=== PATIENT | female | born 1960 | race Hispanic/Latino ===

== ENCOUNTER 2019-09-14 12:48 | Emergency (ER) | payer OTHER ==
[~2019-09-14] VITALS: Ht 157.5 cm; Wt 73.5 kg
[2019-09-14] MEDS ORDERED: AZITHROMYCIN 500MG/NS 250 ML 250 ML IV ONE (13:15)
[2019-09-14] MEDS ORDERED: CEFTRIAXONE SOD 1 GM/NS 50 ML 50 ML IV ONE (13:15)
[2019-09-14] MEDS ORDERED: PANTOPRAZOLE 40 MG 10ML VIAL IV STA (13:15)
[2019-09-14] MEDS ORDERED: SODIUM CHLORIDE 0.9% 1000ML 1,000 ML IV STA (13:15)
[2019-09-14 14:02] LABS: BASOPHILS % 0.2 % (0.0-1.0); HEMATOCRIT 38.5 % (34.2-44.1); HEMOGLOBIN 12.5 g/dL (12.0-16.0); LYMPHOCYTES % 6.3 % (18.0-39.1); MEAN CORPUSCULAR HEMOGLOBIN 31.9 pg (28-32); MEAN CORPUSCULAR HGB CONC 32.5 g/dL (31-35); MEAN CORPUSCULAR VOLUME 98.2 fL (81-99); MONOCYTES # (AUTO) 0.7 (0.2-0.8); MONOCYTES % 4.1 % (4.4-11.3); NEUTROPHILS # (AUTO) 14.5 (2.1-6.9); NEUTROPHILS % 87.9 % (38.7-80.0); PLATELET COUNT 199 x10e3/uL (140-360); RED BLOOD COUNT 3.92 x10e6/uL (3.6-5.1); RED CELL DISTRIBUTION WIDTH 14.4 % (11.7-14.4)
[2019-09-14] MEDS ORDERED: MORPHINE SULFATE INJ 4 MG/ML INJ 1ML IV STA (14:03)
[2019-09-14] MEDS ORDERED: ONDANSETRON HCL INJ 2MG/ML 2ML 2 MG/ML VIAL IV STA (14:03)
[2019-09-14 14:15] LABS: INR 1.08; PROTHROMBIN TIME 14.7 seconds (11.9-14.5)
[2019-09-14 14:16] LABS: PARTIAL THROMBOPLASTIN TIME 34.9 seconds (23.8-35.5)
[2019-09-14] MEDS ORDERED: ONDANSETRON HCL INJ 2MG/ML 2ML 2 MG/ML VIAL ONE (14:17)
[2019-09-14] MEDS ORDERED: MORPHINE SULFATE INJ 4 MG/ML INJ 1ML ONE (14:17)
[2019-09-14 14:24] LABS: ALANINE AMINOTRANSFERASE 43 IU/L (0-55); ALBUMIN 2.2 g/dL (3.5-5.0); ALBUMIN/GLOBULIN RATIO 0.4 (0.8-2.0); ALKALINE PHOSPHATASE 786 IU/L (40-150); ANION GAP 17.6 mmol/L (8-16); BLOOD UREA NITROGEN 13 mg/dL (7-26); BUN/CREATININE RATIO 13 (6-25); CALCIUM 8.6 mg/dL (8.4-10.2); CARBON DIOXIDE 22 mmol/L (22-29); CHLORIDE 104 mmol/L (98-107); CREATINE KINASE 55 IU/L (29-168); CREATININE, SERUM 1.04 mg/dL (0.57-1.11); EST GLOMERULAR FILTRATION RATE 54 ML/MIN (60-); GLUCOSE 185 mg/dL (74-118); POTASSIUM 4.6 mmol/L (3.5-5.1); SODIUM 139 mmol/L (136-145)
--- NOTE | 2019-09-14 14:30 | Emergency Department Note ---
History of Present Illnes History of Present Illness Chief Complaint: COVID PUI History of Present Illness This is a 58 year old female DIAGNOSED WITH COVID AT [facility] 09/10. TODAY WOKE UP WITH SHORTNESS OF BREATH AND MASS TO LEFT SIDE OF NECK. 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 Any updates have been documented here. Past Medical History Recent Fever: No Clinical Suspicion of Infectio: No New/Unexplained Change in Ment: No Past Medical History: Hypertension Other Surgery: RIGHT NEPHROSTOMY COLOSTOMY INTESTINAL SURGERY Social History Smoking Cessation: Never Smoker Counseling Performed: No Alcohol Use: None Any Illegal Drug Use: No TB Exposure/Symptoms: No Physically hurt or threatened: No Family History Family history of heart diseas: No Other Last Tetanus: UPD Any Pre-Existing Lines (PICC,: No Is patient up to date on immun: Yes Last Flu: UNK Last Pneumovax: UNK Review of Systems Review of Systems Constitutional: Reports as per HPI EENTM: Reports as per HPI Cardiovascular: Reports no symptoms Respiratory: Reports as per HPI, Reports dyspnea Gastrointestinal: Reports no symptoms Genitourinary: Reports no symptoms Musculoskeletal: Reports no symptoms Integumentary: Reports no symptoms Neurological: Reports no symptoms Psychological: Reports no symptoms Endocrine: Reports no symptoms Hematological/Lymphatic: Reports no symptoms Physical Exam Related Data Allergies: Uncoded Allergies: PENICILLINE (Adverse Reaction, Unknown, SHORT OF BREATH, 09/14/19) Triage Vital Signs Vital Signs Date Time Temp Pulse Resp B/P (MAP) Pulse Ox O2 Delivery O2 Flow Rate FiO2 09/14/19 12:57 98.9 122 20 111/58 09/14/19 13:24 97 Vital signs reviewed: Yes Physical Exam CONSTITUTIONAL Constitutional: Present well-developed, Present well-nourished, Present ill appearing HENT HENT: Present normocephalic, Present atraumatic, Present oropharynx clear/moist, Present nose normal HENT L/R: Present left ext ear normal, Present right ext ear normal EYES Eyes: Reports PERRL, Reports conjunctivae normal NECK Neck: Present other (LARGE 6CM FIRM MASS LEFT ANT NECK, TENDER) PULMONARY Pulmonary: Present other (DECR BS's THROUGHOUT) CARDIOVASCULAR Cardiovascular: Present regular rhythm, Present heart sounds normal, Present capillary refill normal, Present normal rate GASTROINTESTINAL Abdominal: Present soft, Present nontender, Present bowel sounds normal GENITOURINARY Genitourinary: Present exam deferred SKIN Skin: Present warm, Present dry MUSCULOSKELETAL Musculoskeletal: Present ROM normal NEUROLOGICAL Neurological: Present alert, Present oriented x 3, Present no gross motor or sensory deficits PSYCHOLOGICAL Psychological: Present mood/affect normal, Present judgement normal Results Laboratory Result Diagram: 09/14/19 1311 09/14/19 1311 Laboratory Laboratory Tests Test 09/14/19 13:11 White Blood Count 16.45 x10e3/uL (4.8-10.8) Red Blood Count 3.92 x10e6/uL (3.6-5.1) Hemoglobin 12.5 g/dL (12.0-16.0) Hematocrit 38.5 % (34.2-44.1) Mean Corpuscular Volume 98.2 fL (81-99) Mean Corpuscular Hemoglobin 31.9 pg (28-32) Mean Corpuscular Hemoglobin Concent 32.5 g/dL (31-35) Red Cell Distribution Width 14.4 % (11.7-14.4) Platelet Count 199 x10e3/uL (140-360) Neutrophils (%) (Auto) 87.9 % (38.7-80.0) Lymphocytes (%) (Auto) 6.3 % (18.0-39.1) Monocytes (%) (Auto) 4.1 % (4.4-11.3) Eosinophils (%) (Auto) 0.0 % (0.0-6.0) Basophils (%) (Auto) 0.2 % (0.0-1.0) Neutrophils # (Auto) 14.5 (2.1-6.9) Lymphocytes # (Auto) 1.0 (1.0-3.2) Monocytes # (Auto) 0.7 (0.2-0.8) Eosinophils # (Auto) 0.0 (0.0-0.4) Basophils # (Auto) 0.0 (0.0-0.1) Absolute Immature Granulocyte (auto 0.25 x10e3/uL (0-0.1) Prothrombin Time 14.7 seconds (11.9-14.5) Prothromb Time International Ratio 1.08 Activated Partial Thromboplast Time 34.9 seconds (23.8-35.5) Urine Color Straw (YELLOW) Urine Clarity Sl cloudy (CLEAR) Urine pH 5.5 (5 - 7) Urine Specific [place] 1.015 (1.010-1.025) Urine Protein 2+ (NEGATIVE) Urine Glucose (UA) Negative (NEGATIVE) Urine Ketones Trace (NEGATIVE) Urine Blood Small (NEGATIVE) Urine Nitrite Positive (NEGATIVE) Urine Bilirubin Moderate (NEGATIVE) Urine Urobilinogen 0.2 mg/dL (0.2 - 1) Urine Leukocyte Esterase Large (NEGATIVE) Urine RBC 11-20 /HPF (0-5) Urine WBC 21-50 /HPF (0-5) Urine Epithelial Cells Few /LPF (NONE) Urine Bacteria Many /HPF (NONE) Sodium Level 139 mmol/L (136-145) Potassium Level 4.6 mmol/L (3.5-5.1) Chloride Level 104 mmol/L (98-107) Carbon Dioxide Level 22 mmol/L (22-29) Anion Gap 17.6 mmol/L (8-16) Blood Urea Nitrogen 13 mg/dL (7-26) Creatinine 1.04 mg/dL (0.57-1.11) Estimat Glomerular Filtration Rate 54 ML/MIN (60-) BUN/Creatinine Ratio 13 (6-25) Glucose Level 185 mg/dL (74-118) Lactic Acid Level 4.7 mmol/L (0.5-2.0) Calcium Level 8.6 mg/dL (8.4-10.2) Total Bilirubin 1.8 mg/dL (0.2-1.2) Aspartate Amino Transf (AST/SGOT) 115 IU/L (5-34) Alanine Aminotransferase (ALT/SGPT) 43 IU/L (0-55) Alkaline Phosphatase 786 IU/L (40-150) Creatine Kinase 55 IU/L (29-168) Creatine Kinase MB 1.40 ng/mL (0-5.0) Troponin I < 0.001 ng/mL (0-0.300) B-Type Natriuretic Peptide 47.8 pg/mL (0-100) Total Protein 7.6 g/dL (6.5-8.1) Albumin 2.2 g/dL (3.5-5.0) Globulin 5.4 g/dL (2.3-3.5) Albumin/Globulin Ratio 0.4 (0.8-2.0) Thyroid Stimulating Hormone (TSH) 0.853 uIU/mL (0.350-4.940) Laboratory Tests Test 09/14/19 13:11 White Blood Count 16.45 x10e3/uL (4.8-10.8) Red Blood Count 3.92 x10e6/uL (3.6-5.1) Hemoglobin 12.5 g/dL (12.0-16.0) Hematocrit 38.5 % (34.2-44.1) Mean Corpuscular Volume 98.2 fL (81-99) Mean Corpuscular Hemoglobin 31.9 pg (28-32) Mean Corpuscular Hemoglobin Concent 32.5 g/dL (31-35) Red Cell Distribution Width 14.4 % (11.7-14.4) Platelet Count 199 x10e3/uL (140-360) Neutrophils (%) (Auto) 87.9 % (38.7-80.0) Lymphocytes (%) (Auto) 6.3 % (18.0-39.1) Monocytes (%) (Auto) 4.1 % (4.4-11.3) Eosinophils (%) (Auto) 0.0 % (0.0-6.0) Basophils (%) (Auto) 0.2 % (0.0-1.0) Neutrophils # (Auto) 14.5 (2.1-6.9) Lymphocytes # (Auto) 1.0 (1.0-3.2) Monocytes # (Auto) 0.7 (0.2-0.8) Eosinophils # (Auto) 0.0 (0.0-0.4) Basophils # (Auto) 0.0 (0.0-0.1) Absolute Immature Granulocyte (auto 0.25 x10e3/uL (0-0.1) Prothrombin Time 14.7 seconds (11.9-14.5) Prothromb Time International Ratio 1.08 Activated Partial Thromboplast Time 34.9 seconds (23.8-35.5) Sodium Level 139 mmol/L (136-145) Potassium Level 4.6 mmol/L (3.5-5.1) Chloride Level 104 mmol/L (98-107) Carbon Dioxide Level 22 mmol/L (22-29) Anion Gap 17.6 mmol/L (8-16) Blood Urea Nitrogen 13 mg/dL (7-26) Creatinine 1.04 mg/dL (0.57-1.11) Estimat Glomerular Filtration Rate 54 ML/MIN (60-) BUN/Creatinine Ratio 13 (6-25) Glucose Level 185 mg/dL (74-118) Calcium Level 8.6 mg/dL (8.4-10.2) Total Bilirubin 1.8 mg/dL (0.2-1.2) Aspartate Amino Transf (AST/SGOT) 115 IU/L (5-34) Alanine Aminotransferase (ALT/SGPT) 43 IU/L (0-55) Alkaline Phosphatase 786 IU/L (40-150) Creatine Kinase 55 IU/L (29-168) Total Protein 7.6 g/dL (6.5-8.1) Albumin 2.2 g/dL (3.5-5.0) Globulin 5.4 g/dL (2.3-3.5) Albumin/Globulin Ratio 0.4 (0.8-2.0) Lab results reviewed: Yes Imaging Imaging results reviewed: Yes Procedures 12 Lead ECG Interpretation ECG Interpretation : ECG: ECG 1 Informatics Specialist: Interpreted by ED physician Date: Sep 14, 2019 Time: 13:46 Rhythm: sinus tachycardia Rate: tachycardia (121) QRS axis: normal ST segments normal: Yes T waves normal: Yes Clinical Impression: abnormal ECG Assessment & Plan Medical Decision Making MDM check cbc, chem, covid, cxr, ct chest and ct neck (mass), tsh, blood cx's, lactic acid, ua/cx - r/o pneumonia, covid19, uti, evaluate mass of neck, sepsis, electrolyte abnl, renal insuff Reassessment Reassessment Recent COVID19 positive, concern for sepsis with viral pneumonia as source SIRS criteria of WBC>12, HR>90, RR>20 Lactic acid 4.7 (lab says the specimen was hemolyzed) meets criteria for septic shock but i feel this is viral etiology so therefore will deviate from standard protocol. Blood cx's were drawn initially and IV abx's were given. NO ICU/IMCU BEDS AVAILABLE HERE - ADMINISTRATION WANTS PT TRANSFERRED. I SPOKE WITH DR ALEGRIA AND THOMAS AT [facility] - ACCEPTED FOR TRANSFER Assessment & Plan Final Impression: (1) Pneumonia due to COVID-19 virus (2) UTI (urinary tract infection) (3) Parotitis (4) Sepsis Depart Disposition: TRANS TO OTHER [facility] FAC[facility] Last Vital Signs Date Time Temp Pulse Resp B/P (MAP) Pulse Ox O2 Delivery O2 Flow Rate FiO2 09/14/19 13:24 118 28 121/109 97 09/14/19 12:57 98.9 Medications in the ED Pantoprazole Sodium 40 mg ONCE STAT IV Last administered on 09/14/19at 14:15; Admin Dose 40 MG; Start 09/14/19 at 13:15; Stop 09/14/19 at 13:30; Status DC Sodium Chloride 1,000 ml @ 0 mls/hr Q0M STAT IV Last administered on 09/14/19at 14:15; Admin Dose 1,000 MLS/HR; Start 09/14/19 at 13:15; Stop 09/14/19 at 13:22; Status DC Ceftriaxone Sodium 50 ml @ 100 mls/hr ONCE ONCE IV Last administered on 09/14/19at 14:15; Admin Dose 100 MLS/HR; Start 09/14/19 at 13:15; Stop 09/14/19 at 13:44; Status DC Azithromycin 250 ml @ 200 mls/hr NOW ONCE IV ; Start 09/14/19 at 13:15; Stop 09/14/19 at 14:29 Morphine Sulfate 4 mg NOW STAT IV Last administered on 09/14/19at 14:15; Admin Dose 4 MG; Start 09/14/19 at 14:03; Stop 09/14/19 at 14:08; Status DC Ondansetron HCl 4 mg NOW STAT IV Last administered on 09/14/19at 14:15; Admin Dose 4 MG; Start 09/14/19 at 14:03; Stop 09/14/19 at 14:08; Status DC Morphine Sulfate 4 mg STK-MED ONCE .ROUTE ; Start 09/14/19 at 14:17; Stop 09/14/19 at 14:11; Status DC Ondansetron HCl 4 mg STK-MED ONCE .ROUTE ; Start 09/14/19 at 14:17; Stop 09/14/19 at 14:11; Status DC MONA SOUZA MD Sep 14, 2019 14:30
[2019-09-14 14:31] LABS: B-TYPE NATRIURETIC PEPTIDE2 47.8 pg/mL (0-100)
[2019-09-14 14:43] LABS: THYROID STIMULATING HORMONE 0.853 uIU/mL (0.350-4.940)
[2019-09-14] MEDS ORDERED: SODIUM CHLORIDE 0.9% 50ML 50 ML ONE (14:43)
[2019-09-14] MEDS ORDERED: IOPAMIDOL 370 MG/ML 200 ML INFUS..BTL INJ ONE (14:44)
[2019-09-14 14:48] LABS: BILIRUBIN,URINE MODERATE (NEGATIVE); CLARITY,URINE SL CLOUDY (CLEAR); COLOR,URINE STRAW (YELLOW); KETONES,URINE TRACE (NEGATIVE); LEUKOCYTE ESTERASE ,URINE LARGE (NEGATIVE); NITRITE,URINE POSITIVE (NEGATIVE); PROTEIN,URINE DIPSTICK 2+ (NEGATIVE); URINE UROBILINOGEN 0.2 mg/dL (0.2 - 1)
[2019-09-14 15:00] LABS: BACTERIA,URINE MANY /HPF; EPITHELIAL CELLS,URINE FEW /LPF; WBC,URINE (MAN) 21-50 /HPF (0-5)
--- NOTE | 2019-09-14 16:11 | Diagnostic Imaging Report ---
EXAM: CT Chest WITH contrast- Pulmonary Embolism Protocol INDICATION: Shortness of breath COMPARISON: None TECHNIQUE: Chest was scanned utilizing a multidetector helical scanner from the lung apex through the level of the diaphragm after administration of IV contrast. Thin section reconstructions were obtained with special concentration on the pulmonary arteries. Coronal and sagittal reformations were obtained. Pulmonary embolism protocol was performed. IV CONTRAST: 100 cc of Isovue 370 RADIATION DOSE: Total DLP: 908 mGy*cm Dose modulation, iterative reconstruction, and/or weight based adjustment of the mA/kV was utilized to reduce the radiation dose to as low as reasonably achievable. COMPLICATIONS: None FINDINGS: LINES/ TUBES: None. PULMONARY ARTERIES: No filling defect is identified within the pulmonary arteries to the segmental level. The subsegmental pulmonary arteries are not well opacified. Main pulmonary artery measures 2.4 cm in diameter. No right heart strain. LUNGS AND AIRWAYS: The central airways are patent. Mild centrilobular emphysema. Multifocal bilateral lower lung predominant consolidative and groundglass opacities. Dependent lower lobe subsegmental atelectasis. PLEURA: Moderate right pleural effusion, likely with loculations. No pneumothorax. HEART AND MEDIASTINUM: Partially visualized thyroid gland appears unremarkable. No supraclavicular, axillary, mediastinal lymphadenopathy. Right hilar lymphadenopathy measures up to 1.7 cm. UPPER ABDOMEN: No acute findings in the upper abdomen. BONES: No acute osseous injury. No suspicious lytic or blastic lesions. Old left seventh lateral rib fracture. SOFT TISSUES: Unremarkable. IMPRESSION: No pulmonary embolism. Multifocal bilateral lower lung predominant ground glass and consolidative opacities most compatible with multifocal atypical pneumonia the given clinical history of COVID19. Right hilar lymphadenopathy is likely reactive. Moderate right pleural effusion, likely with loculated components. Associated right lower lobe subsegmental atelectasis. Signed by: Man Bee MD on 09/14/2019 4:07 PM
[2019-09-14] MEDS ORDERED: SODIUM CHLORIDE 0.9% 1000ML 1,000 ML ONE ×2 (16:37→17:24)
--- NOTE | 2019-09-14 17:16 | NUR ---
initial call to Transfer Center [id number]
[2019-09-14] MEDS: SODIUM CHLORIDE 0.9% 1000ML 1,000 ML IV SCH ×2 (17:19→18:37)
--- NOTE | 2019-09-14 17:19 | Diagnostic Imaging Report ---
History: Shortness of breath, left anterior neck mass Comparison studies: None Technique: Axial, coronal and sagittal images from the skull base to the thoracic inlet. Coronal and sagittal images reconstructed from the axial data. Dose modulation, iterative reconstruction, and/or weight based adjustment of the mA/kV was utilized to reduce the radiation dose to as low as reasonably achievable. Intravenous contrast: 100 cc of Omnipaque 300. Findings: Airway: Patent. Right parotid gland: Normal in size and density. No masses or calcifications. The left parotid gland: Diffuse enlarged and associated with ill-defined inflammatory changes throughout the superficial lobe that extend to the underlying platysma, to the surrounding subcutaneous fat and to the left submandibular space (series 802, images 9 through 47). No fluid collections to indicate the presence of an abscess. Lymph nodes: 9 mm mm enhancing, nonnecrotic, noncalcified left suprahyoid reactive lymph node (series 802, image 21) Otherwise, no radiographically significant adenopathy Vessels: Nonstenosing calcified plaques at the left carotid bulb. Otherwise, no abnormalities. The carotid and vertebral arteries are patent. Orbits: No abnormalities. Paranasal sinuses: Clear. Temporal bones: No abnormalities. Skull base and facial bones: Intact. Cervical spine: * Mildly degenerated disks at C4-5 and C5-6. * Foraminal stenosis, mild left at C2-3 and C3-4, moderate left at C4-5 and C5-6 due to facet and uncovertebral arthrosis. Additional facet arthrosis on the left at C6-C7 and C7-T1. * Patent spinal canal. IMPRESSION: 1. Nonspecific inflammatory changes in the left parotid (i.e. parotitis ) extend into the surrounding soft tissues. A reactive subcentimeter nonnecrotic left suprahyoid lymph node is seen. No abscess 2. No additional significant abnormalities. Signed by: Dr. Edward Regalado M.D. on 09/14/2019 5:16 PM
[2019-09-14 19:33] VITALS: BP 108/75
== END 2019-09-14 21:03 | disposition other institution (70) ==
LOC: ER 12:48
DX: U07.1 COVID-19 (principal); R06.02 Shortness of breath; J12.89 Other viral pneumonia; A41.89 Other specified sepsis; K11.20 Sialoadenitis, unspecified; N39.0 Urinary tract infection, site not specified; I10 Essential (primary) hypertension; Z93.6 Other artificial openings of urinary tract status; Z93.3 Colostomy status
CPT/HCPCS: 36415; 70491; 71260; 80053; 81001; 82550; 82553; 83605; 83880; 84443; 84484; 85025; 85610; 85730; 87040; 87086; 87635; 93005; 99284; C9113; J0456; J0696; J2270; J2405; J7030; Q9967; 87071; 87205